=== PATIENT | male | born 1980 | race Hispanic/Latino ===

== ENCOUNTER 2018-04-25 13:33 | Emergency (ER) | payer MEDICAID ==
--- NOTE | 2018-04-25 17:22 | Emergency Department Report ---
ED ENT HPI - General Chief complaint: Earache Stated complaint: SORE THROAT/EAR Time Seen by Provider: 04/25/18 17:21 Source: patient Mode of arrival: Ambulatory Limitations: No Limitations - History of Present Illness Initial comments: Physical 37-year-old male who presents with right ear pain for 2 weeks. Patient states he was seen by [facility] provider 6 weeks ago for bilateral ear pain. He was given Augmentin antibiotics and drops with some improvement of symptoms for 2 weeks. Symptoms returned 2 weeks ago. Patient states he feels pressure and right ear hearing is muffled. He is currently taken decongestant medication with no improvement. He is also complaining of sore throat. Patient denies fever, difficulty swallowing, otorrhea, and congestion. MD complaint: sore throat, ear pain (right ear) Onset/Timin -: week(s) Location: R ear, throat Severity: moderate Severity scale (0 -10): 5 Quality: aching Consistency: constant Improves with: none Worsens with: swallowing Associated Symptoms: sore throat, hearing loss (hearing muffled) - Related Data Previous Rx's Medication Instructions Recorded Last Taken Type Azithromycin [Zithromax Z-GILMAR] 250 mg PO DAILY #6 tablet 04/25/18 Unknown Rx Allergies Allergy/AdvReac Type Severity Reaction Status Date / Time No Known Allergies Allergy Unverified 04/25/18 13:46 ED Dental HPI - General Chief complaint: Earache Stated complaint: SORE THROAT/EAR Time Seen by Provider: 04/25/18 17:21 Source: patient Mode of arrival: Ambulatory Limitations: No Limitations - Related Data Previous Rx's Medication Instructions Recorded Last Taken Type Azithromycin [Zithromax Z-GILMAR] 250 mg PO DAILY #6 tablet 04/25/18 Unknown Rx Allergies Allergy/AdvReac Type Severity Reaction Status Date / Time No Known Allergies Allergy Unverified 04/25/18 13:46 ED Review of Systems ROS: Stated complaint: SORE THROAT/EAR Other details as noted in HPI Constitutional: denies: chills, fever ENT: ear pain (right ear), throat pain Respiratory: denies: cough, shortness of breath, wheezing Cardiovascular: denies: chest pain, palpitations Gastrointestinal: denies: abdominal pain, nausea, diarrhea Neurological: denies: headache, weakness, paresthesias Psychiatric: denies: anxiety, depression ED Past Medical Hx - Past Medical History Hx Psychiatric Treatment: Yes (drug/alcohol recovery) Hx Asthma: Yes - Surgical History Additional Surgical History: wisdom teeth - Social History Smoking Status: Never Smoker Substance Use Type: None - Medications Home Medications: Home Medications Medication Instructions Recorded Confirmed Last Taken Type Azithromycin [Zithromax Z-GILMAR] 250 mg PO DAILY #6 tablet 04/25/18 Unknown Rx ED Physical Exam - General Limitations: No Limitations General appearance: alert, in no apparent distress - ENT ENT exam: Present: mucous membranes moist. Absent: normal orophraynx ( erythematous posterior pharynx, uvula midline, tonsils normal without exudate), TM's normal bilaterally (cloudy immobile right TM, no discharge) - Respiratory Respiratory exam: Present: normal lung sounds bilaterally. Absent: respiratory distress - Cardiovascular Cardiovascular Exam: Present: regular rate, normal rhythm. Absent: systolic murmur, diastolic murmur, rubs, gallop - GI/Abdominal GI/Abdominal exam: Present: soft, normal bowel sounds - Neurological Exam Neurological exam: Present: alert, oriented X3 - Psychiatric Psychiatric exam: Present: normal affect, normal mood - Skin Skin exam: Present: warm, dry, intact, normal color. Absent: rash ED Course Vital Signs 04/25/18 04/25/18 13:39 18:09 Temperature 97.9 F 97.6 F Pulse Rate 65 51 L Respiratory 16 16 Rate Blood Pressure 107/53 Blood Pressure 101/63 [Left] O2 Sat by Pulse 99 100 Oximetry ED Medical Decision Making - Medical Decision Making This is a 37 y.o. male that presents with right ear pain for 2 weeks. Patient recently treated for otitis media with augmentin with no improvement of symptoms. Patient is stable and was examined by me. Vitals normal. Physical assessment susceptible of perforated otitis media of right ear. Start azithromycin, tylenol or ibuprofen for pain. Discussed plan with patient who agreed with plan. Discharged home in stable condition. Follow up with PCP in 24- 72 hours. Patient given referral to ENT. Critical care attestation.: If time is entered above; I have spent that time in minutes in the direct care of this critically ill patient, excluding procedure time. ED Disposition Clinical Impression: Acute otitis media of right ear with perforated tympanic membrane, Otalgia of right ear Disposition: TO HOME OR SELFCARE Is pt being admited?: No Does the pt Need Aspirin: No Condition: Stable Instructions: Ruptured Eardrum (ED), Otitis Media (ED) Additional Instructions: Give tylenol or ibuprofen for pain every 6-8 hours. Take antibiotics as prescribed to avoid recurrence of the ear infection. Avoid high altitudes, may worsen the pain during ear infection. If symptoms do not improve within 3 to 5 days, then follow up with primary care provider. Prescriptions: Azithromycin [Zithromax Z-GILMAR] 250 mg PO DAILY #6 tablet Referrals: [facility] [Outside] - 3-5 Days [facility] [place] [Outside] - 3-5 Days [facility] [Provider Group] - 3-5 Days Time of Disposition: 17:51 Print Language: AZERI
[2018-04-25 18:13] VITALS: BP 101/63
== END 2018-04-25 18:13 | disposition home or self-care (01) ==
LOC: ED 13:33
DX: H66.91 Otitis media, unspecified, right ear (principal); H72.91 Unspecified perforation of tympanic membrane, right ear; J45.909 Unspecified asthma, uncomplicated
CPT/HCPCS: 99282